=== PATIENT | male | born 2000 | race Caucasian/White ===

== ENCOUNTER 2020-02-08 22:12 | Inpatient (IN) ==
[2020-02-08 23:04] LABS: Bilirubin,Urine Negative (Negative); Blood,Urine Negative (Negative); Clarity,Urine Clear (Clear); Color,Urine Colorless (Yellow); Glucose,Urine (UA) Normal (Normal); Ketones,Urine Negative (Negative); Leukocyte Esterase,Urine Negative (Negative); Nitrite,Urine Negative (Negative); Protein,Urine Negative (Neg-Trace); Specific Gravity,Urine < 1.005 (1.010-1.025); Urobilinogen,Urine Normal (Normal)
[2020-02-08 23:07] LABS: Basophils % 0.3 %; Eosinophils # 0.1 K/mcL (0.0-0.6); Eosinophils % 1.1 %; Hematocrit 49.4 % (37.5-50.1); Hemoglobin 16.1 g/dL (12.9-16.9); Immature Granulocytes % 0.4 % (0-4); Lymphocytes # 2.4 K/mcL (0.6-4.6); Lymphocytes % 19.3 %; Mean Corpuscular HGB Conc 32.6 g/dL (31.6-35.5); Mean Corpuscular Hemoglobin 30.1 pg (28.0-33.3); Mean Corpuscular Volume 92.3 fL (83.0-100.0); Mean Platelet Volume 10.5 fL (9.4-12.4); Monocytes # 0.8 K/mcL (0.0-1.3); Monocytes % 6.5 %; Neutrophils # 8.9 K/mcL (1.6-8.9); Platelet Count 309 K/mcL (140-400); Red Blood Count 5.35 M/mcL (4.19-5.50); Red Cell Distribution Width 13.9 % (11.5-14.5); Segmented Neutrophils % 72.4 %; White Blood Count 12.3 K/mcL (4.3-11.1)
[2020-02-08 23:16] LABS: Amphetamine Screen,Urine Negative ng/mL (Cutoff=1000); Barbiturate Screen,Urine Negative ng/mL (Cutoff=200); Benzodiazepines Screen,Urine Negative ng/mL (Cutoff=200); Cannabinoid Screen,Urine Negative ng/mL (Cutoff = 50); Cocaine Screen,Urine Negative ng/mL (Cutoff= 300); Opiate Screen,Urine Negative ng/mL (Cutoff=300); Phencyclidine Screen,Urine Negative ng/mL (Cutoff=25)
[2020-02-08 23:28] LABS: Acetaminophen < 10 mcg/mL (10-20); BUN/Creatinine Ratio 11 (6-26); Blood Urea Nitrogen 10 mg/dL (6-20); Carbon Dioxide 26 mEq/L (23-29); Chloride 107 mEq/L (98-107); Ethanol 79 mg/dL (Less than 10); Glucose 82 mg/dL (70-105); Osmolality,Calculated 292 (280-300); Salicylate < 2.5 mg/dL (15.0-30.0); Sodium 142 mEq/L (136-145); eGFR For African Americans > 60 (> 60); eGFR For Non-African Americans > 60 (> 60)
[2020-02-09] MEDS ORDERED: Acetaminophen 325 MG TABLET PO PRN (02:11)
[2020-02-09] MEDS ORDERED: Ibuprofen 400 MG TABLET PO PRN (02:11)
[2020-02-09] MEDS ORDERED: Haloperidol Lactate 5 MG/ML VIAL IM PRN (02:11)
[2020-02-09] MEDS ORDERED: *HR* LORazepam 1 MG TABLET PO PRN (02:11)
[2020-02-09] MEDS ORDERED: haloperidoL 5 MG TABLET PO PRN (02:11)
[2020-02-09] MEDS ORDERED: *HR* LORazepam 2 MG/ML VIAL IM PRN (02:11)
[2020-02-09] MEDS ORDERED: QUEtiapine Fumarate 25 MG TABLET PO PRN (02:11)
[2020-02-09] MEDS ORDERED: MOM Conc 10 ML UD.LIQ PO PRN (02:43)
[2020-02-09] MEDS ORDERED: Mag Hydrox/Al Hydrox/Simeth 30 ML UDC PO PRN (02:46)
[2020-02-09] MEDS ORDERED: Nicotine 2 MG GUM BC PRN (02:54)
[2020-02-09] MEDS: hydrOXYzine pamoate 25 MG CAPSULE PO PRN ×2 (03:07→20:49)
[2020-02-09] MEDS: QUEtiapine Fumarate 100 MG TABLET PO SCH (20:48)
[2020-02-10] MEDS: hydrOXYzine pamoate 25 MG CAPSULE PO PRN (20:00)
[2020-02-10] MEDS: QUEtiapine Fumarate 100 MG TABLET PO SCH (20:00)
[2020-02-11 09:05] VITALS: BP 129/82
== END 2020-02-11 12:40 | disposition home or self-care (01) | DRG 751 ==
LOC: EMEROOARM 22:12 → 1ANU 02-09 02:10
PROVIDERS: ADMIT Psychiatry & Neurology Psychiatry; ATTEND Psychiatry & Neurology Psychiatry